=== PATIENT | female | born 1975 | race Hispanic/Latino ===

== ENCOUNTER → 2017-06-02 | Outpatient (CLI) | payer BC ==
--- NOTE | 2017-06-02 12:38 | Diagnostic Imaging Report ---
PROCEDURE:HIPS BILAT TWO VWS(+/- PELVIS) INDICATION:Osteoarthrosis. COMPARISON:None. FINDINGS: No acute displaced fractures or dislocations. Mild degenerative changes of the hips with subchondral sclerosis and osteophytosis. Soft tissues are unremarkable. CONCLUSION: No acute radiographic abnormality. Dictated by: Nolan Boudreaux M.D. on 06/02/2017 at 12:38 Electronically approved by: Nolan Boudreaux M.D. on 06/02/2017 at 12:38
--- NOTE | 2017-06-02 13:34 | Diagnostic Imaging Report ---
EXAM: DXA BONE DENSITY INDICATIONS: OSTEOPORSIS COMPARISON: None. FINDINGS: Proximal left femur bone mineral density (BMD) (g/cm2):1.02 Femur T-score (standard deviation relative to young adult mean BMD): 0.4 Femur Z-score (standard deviation relative to age-matched control group):0.5 Lumbar bone mineral density (BMD) (g/cm2):1.17 Lumbar T-score (standard deviation relative to young adult mean BMD) 1.2 Lumbar Z-score (standard deviation relative to age-matched control group):1.4 Change since prior exam (%): Femur:Not applicable. Spine:Not applicable. Change since oldest prior exam (%): Femur:Not applicable. Spine:Not applicable. CONCLUSION: Bone mineral density is classified as normal. Fracture risk is not increased. World Health Organization Classification: *The Z-score is provided for informational purposes. The T-score is preferable for clinical decisions. When comparing exams, a change of >4% is considered statistically significant. SUGGESTED RECOMMENDATIONS: Normal \T\ Osteopenia:Consideration should be given to use of calcium supplementation, daily multiple vitamins and adequate exercise, as preventive measures against osteoporosis, if clinically indicated. Osteoporosis \T\ Severe Osteoporosis:In addition to the above, consideration should be given to medical therapy against osteoporosis, if clinically indicated. Dictated by: Nolan Boudreaux M.D. on 06/02/2017 at 13:34 Electronically approved by: Nolan Boudreaux M.D. on 06/02/2017 at 13:34
--- NOTE | 2017-06-10 16:32 | Diagnostic Imaging Report ---
#[id number] - MGSCRBIL #BILATERAL FIRST EVER DIGITAL SCREENING MAMMOGRAM WITH CAD: 06/02/2017 CLINICAL: Routine screening. Baseline exam. No prior exams were available for comparison. Current study contains 4 films. The tissue of both breasts is heterogeneously dense. This may lower the sensitivity of mammography. Current study was also evaluated with a Computer Aided Detection (CAD) system. There is a benign calcification in the left breast. No significant masses, calcifications, or other findings are seen in either breast. IMPRESSION: BENIGN There is no mammographic evidence of malignancy. A 1 year screening mammogram is recommended. The patient will be notified by letter of the results. Michael capellan/marva:06/10/2017 10:25:26 Security And Compliance Project Manager: Martha TAVARES)(M), [facility] letter sent: Normal Exam Mammogram BI-RADS: 2 Benign
== END ==
LOC: MAMMO 11:39
PROVIDERS: ATTEND Internal Medicine
DX: Z12.31 Encounter for screening mammogram for malignant neoplasm of breast (principal); Z13.820 Encounter for screening for osteoporosis; M16.10 Unilateral primary osteoarthritis, unspecified hip
CPT/HCPCS: 73521; 77067; 77080

== ENCOUNTER → 2017-06-16 | Outpatient (CLI) | payer BC ==
--- NOTE | 2017-06-16 14:22 | Diagnostic Imaging Report ---
PROCEDURE:TRANSVAGINAL ULTRASOUND COMPARISON:None. INDICATIONS:excessive and frequent menstruation TECHNIQUE: Grayscale transverse and sagittal transabdominal and transvaginal images were obtained of the pelvis. Transvaginal imaging was medically necessary to better evaluate the endometrium. FINDINGS: 42-year-old female patient is G4, with stated LMP 05/30/2017 Exam limited by overlying bowel gas. UTERUS: 8.5 x 4.1 x 5.6 cm. Normal echogenicity. Normal vascularity. No focal lesions. ENDOMETRIUM: 4.3 mm. Homogeneous echotexture without focal thickening. There is a 2.3 x 1.9 x 2.1 cm relatively well-circumscribed solid rounded lesion in the endometrial cavity at the fundus, with mildly heterogeneous echogenicity and vascularity on color Doppler. A small amount of fluid surrounds this lesion in the endometrial cavity. This RIGHT OVARY: 5.5 x 3.2 x 2.9 cm. Normal echogenicity. 3.5 x 3.1 x 2.9 cm hypoechoic rounded, well-circumscribed lesion with lacy reticular echoes, consistent with a hemorrhagic cyst. No increased vascularity. Adjacent 1.8 x 1.7 x 1.7 cm cystic anechoic lesion, likely representing a dominant follicle. LEFT OVARY: Not visualized due to overlying bowel gas. There is no free fluid within the pelvis. No adnexal masses. CONCLUSION: 1. 2.3 cm solid rounded lesion in the endometrial cavity at the fundus. Primary diagnostic consideration is an endometrial polyp. Endometrial neoplasm or focal hyperplasia are less likely. Recommend REGIONAL ENVIRONMENTAL MANAGER consultation for tissue diagnosis. 2. 3.5 cm right ovarian hemorrhagic cyst. Satnam Haq M.D. Dictated by: Satnam Haq M.D. on 06/16/2017 at 14:23 Electronically approved by: Satnam Haq M.D. on 06/16/2017 at 14:23
--- NOTE | 2017-06-16 14:22 | Diagnostic Imaging Report ---
PROCEDURE:US PELVIS COMPLETE NON OB COMPARISON:None. INDICATIONS:excessive and frequent menstruation CONCLUSION: Please refer to transvaginal ultrasound performed at the same date and time for full dictated report. Satnam Haq M.D. Dictated by: Satnam Haq M.D. on 06/16/2017 at 14:23 Electronically approved by: Satnam Haq M.D. on 06/16/2017 at 14:23
== END ==
LOC: US 11:48
PROVIDERS: ATTEND Internal Medicine
DX: N92.0 Excessive and frequent menstruation with regular cycle (principal)
CPT/HCPCS: 76830; 76856

== ENCOUNTER 2019-08-10 15:10 | Observation (INO) | payer BC ==
[~2019-08-10] VITALS: Ht 162.6 cm; Wt 84.4 kg
--- OUTSIDE RECORDS SUMMARY | 2019-08-10 15:13 | XMS REPORT | Continuity of Care Document ---
Author Author [facility] Organization [facility] Address [address] [place] [address] Phone Unavailable Care Team Providers Care Pbx Supervisor Name Role Phone Pattie GONZALEZ Attphys Unavailable Problems This patient has no known problems. Allergies, Adverse Reactions, Alerts This patient has no known allergies or adverse reactions. Medications This patient has no known medications. Procedures This patient has no known procedures. Results Test Description Test Time Test Comments Results Result Comments Source US TRANSVAGINAL [facility] [address] [place] [address] Patient Name: EDWARD TILLMAN MR #: [id number] : 1975 Age/Sex: 42/F Req #: [id number] Adm Physician: Ordered by: MANUEL GONZALEZ MD Report #: [id number] Location: Room/Bed: Procedure: [id number] US/US TRANSVAGINAL Exam Date: 06/16/17 Exam Time: 1255 REPORT STATUS: Signed PROCEDURE: TRANSVAGINAL ULTRASOUND COMPARISON: None. INDICATIONS: excessive and frequent menstruation TECHNIQUE: Grayscale transverse and sagittal transabdominal and transvaginal images were obtained of the pelvis. Transvaginal imaging was medically necessary to better evaluate the endometrium. FINDINGS: 42-year-old female patient is G4, with stated LMP 05/30/2017 Exam limited by overlying bowel gas. UTERUS: 8.5 x 4.1 x 5.6 cm. Normal echogenicity. Normal vascularity. No focal lesions. ENDOMETRIUM: 4.3 mm. Homogeneous echotexture without focal thickening. There is a 2.3 x 1.9 x 2.1 cm relatively well-circumscribed solid rounded lesion in the endometrial cavity at the fundus, with mildly heterogeneous echogenicity and vascularity on color Doppler. A small amount of fluid surrounds this lesion in the endometrial cavity. This RIGHT OVARY: 5.5 x 3.2 x 2.9 cm. Normal echogenicity. 3.5 x 3.1 x 2.9 cm hypoechoic rounded, well-circumscribed lesion with lacy reticular echoes, consistent with a hemorrhagic cyst. No increased vascularity. Adjacent 1.8 x 1.7 x 1.7 cm cystic anechoic lesion, likely representing a dominant follicle. LEFT OVARY: Not visualized due to overlying bowel gas. There is no free fluid within the pelvis. No adnexal masses. CONCLUSION: 1. 2.3 cm solid rounded lesion in the endometrial cavity at the fundus. Pr imary diagnostic consideration is an endometrial polyp. Endometrial neoplasm or focal hyperplasia are less likely. Recommend STEAMER BLOCKER consultation for tissue diagnosis. 2. 3.5 cm right ovarian hemorrhagic cyst. Kayla Haq M.D. Dictated by: Kayla Haq M.D. on 06/16/2017 at 14:23 Electronically approved by: Kayla Haq M.D. on 06/16/2017 at 14:23 Dictated By: KAYLA HAQ MD 1423 Transcribed By: CYN on 06/16/17 1423 COPY TO: MANUEL GONZALEZ MD US PELVIS COMPLETE NON OB [place] [address] Patient Name: EDWARD TILLMAN MR #: [id number] : 1975 Age/Sex: 42/F Req #: [id number] Adm Physician: Ordered by: MANUEL GONZALEZ MD Report #: [id number] Location: US Room/Bed: Procedure: [id number] US/US PELVIS COMPLETE NON OB Exam Date: 06/16/17 Exam Time: 1255 REPORT STATUS: Signed PROCEDURE: US PELVIS COMPLETE NON OB COMPARISON: None. INDICATIONS: excessive and frequent menstruation CONCLUSION: Please refer to transvaginal ultrasound performed at the same date and time for full dictated report. Kayla Haq M.D. Dictated by: Kayla Haq M.D. on 06/16/2017 at 14:23 Electronically approved by: Kayla Haq M.D. on 06/16/2017 at 14:23 Dictated By: KAYLA HAQ MD 1423 Transcribed By: CYN on 06/16/17 1423 COPY TO: MANUEL GONZALEZ MD HIPS BIL TWO VWS(+/- PELVIS) [place] [address] Patient Name: EDWARD TILLMAN MR #: [id number] : 1975 Age/Sex: 42/F Req #: [id number] Adm Physician: Ordered by: MANUEL GONZALEZ MD Report #: [id number] [facility] Room[facility]Bed: Procedure: DX/HIPS BILAT TWO VWS(+/- PELVIS) Exam Date: Exam Time: REPORT STATUS: Signed PROCEDURE: HIPS BILAT TWO VWS(+/- PELVIS) INDICATION: Osteoarthrosis. COMPARISON: None. FINDINGS: No acute displaced fractures or dislocations. Mild degenerative changes of the hips with subchondral sclerosis and osteophytosis. Soft tissues are unremarkable. CONCLUSION: No acute radiographic abnormality. Dictated by: Nolan Willis M.D. on 06/02/2017 at 12:38 Electronically approved by: Nolan Willis M.D. on 06/02/2017 at 12:38 Dictated By: NOLAN WILLIS MD 1238 Transcribed By: CYN on 06/02/17 1238 COPY TO: MANUEL GONZALEZ MD BONE DXA DUAL ENERGY [place] [address] Patient Name: EDWARD TILLMAN MR #: [id number] : 1975 Age/Sex: 42/F Req #: [id number] Adm Physician: Ordered by: MANUEL GONZALEZ MD Report #: [id number] [facility] Room/Bed: Procedure: DX/BONE DXA DUAL ENERGY Exam Date: Exam Time: REPORT STATUS: Signed EXAM: DXA BONE DENSITY INDICATIONS: OSTEOPORSIS COMPARISON: None. FINDINGS: Proximal left femur bone mineral density (BMD) (g/cm2): 1.02 Femur T-score (standard deviation relative to young adult mean BMD): 0.4 Femur Z-score (standard deviation relative to age-matched control group): 0.5 Lumbar bone mineral density (BMD) (g/cm2): 1.17 Lumbar T-score (standard deviation relative to young adult mean BMD) 1.2 Lumbar Z-score (standard deviation relative to age-matched control group): 1.4 Change since prior exam (%): Femur: Not applicable. Spine: Not applicable. Change since oldest prior exam (%): Femur: Not applicable. Spine: Not applicable. CONCLUSION: Bone mineral density is classified as normal. Fracture risk is not increased. World Health Org anization Classification: *The Z-score is provided for informational purposes. The T-score is preferable for clinical decisions. When comparing exams, a change of >4% is considered statistically significant. SUGGESTED RECOMMENDATIONS: Normal T Osteopenia: Consideration should be given to use of calcium supplementation, daily multiple vitamins and adequate exercise, as preventive measures against osteoporosis, if clinically indicated. Osteoporosis T Severe Osteoporosis: In addition to the above, consideration should be given to medical therapy against osteoporosis, if clinically indicated. Dictated by: Nolan Willis M.D. on 06/02/2017 at 13:34 Electronically approved by: Nolan Willis M.D. on 06/02/2017 at 13:34 Dictated By: NOLAN WILLIS MD 1334 Transcribed By: CYN on 06/02/17 1334 COPY TO: MANUEL GONZALEZ MD MAMMOGRAPHY DIGITAL [place] [address] Patient Name: EDWARD TILLMAN MR #: [id number] : 1975 Age/Sex: 42/F Req #: [id number] [facility] Physician: Ordered by: MANUEL GONZALEZ MD Report #: [id number] [facility] Room[facility]Bed: Procedure: [id number] MG/MAMMOGRAPHY DIGITAL SCR BILAT Exam Date: 06/02/17 Exam Time: 1209 REPORT STATUS: Signed #[id number] - MGSCRBIL #BILATERAL FIRST EVER DIGITAL SCREENING MAMMOGRAM WITH CAD: 06/02/2017 CLINICAL: Routine screening. Baseline exam. No prior exams were available for comparison. Current study contains 4 films. The tissue of both breasts is heterogeneously dense. This may lower the sensitivity of mammography. Current study was also evaluated with a Computer Aided Detection (CAD) system. There is a benign calcification in the left breast. No significant masses, calcifications, or other findings are seen in either breast. IMPRESSION: BENIGN There is no mammographic evidence of malignancy. A 1 year screening mammogram is recommended. The patient will be notified by letter of the results. Darnell capellan/maricel:06/10/2017 10:25:26 Supervisor Joiners: Martha TAVARES)(Pattie), [facility] letter sent: Normal Exam Mammogram BI-RADS: 2 Benign Dictated By: DARNELL FRENCH DO 1025 Transcribed By: MARICEL on 06/10/17 1025 COPY TO: MANUEL GONZALEZ MD
--- NOTE | 2019-08-10 15:14 | Emergency Department Note ---
History of Present Illnes History of Present Illness History of Present Illness This is a 44 year old female sent by PCP for evaluation of HgB of 5.6. Self-reported h/o of dysfunctional uterine bleeding. Historian: Patient Arrival Mode: Car Onset (how long ago): day(s) Radiation: Reports non-radiation Severity: moderate Onset quality: gradual Duration (how long): day(s) Timing of current episode: constant Progression: worsening Chronicity: new Context: Denies recent illness, Denies recent surgery, Denies recent immobilization, Denies recent travel, Denies trauma/injury, Denies new medications, Denies hx of DVT/PE, Denies non-compliance w/ medications, Denies other Relieving factors: none Exacerbating factors: none Associated symptoms: Reports weakness Treatments prior to arrival: none Past Medical/Family History Physician Review I have reviewed the patient's past medical and family history. Any updates have been documented here. Past Medical History Recent Fever: No Clinical Suspicion of Infectio: No New/Unexplained Change in Ment: No Past Medical History: Anemia Past Surgical History: None Social History Smoking Cessation: Never Smoker Alcohol Use: None Any Illegal Drug Use: No Review of Systems Review of Systems Constitutional: Reports weakness EENTM: Reports no symptoms Cardiovascular: Reports no symptoms Respiratory: Reports no symptoms Gastrointestinal: Reports no symptoms Genitourinary: Reports other (vaginal bleeding) Musculoskeletal: Reports no symptoms Integumentary: Reports no symptoms Neurological: Reports no symptoms Psychological: Reports no symptoms Endocrine: Reports no symptoms Hematological/Lymphatic: Reports no symptoms Physical Exam Related Data Allergies: Coded Allergies: No Known Allergies (Unverified , 08/10/19) Triage Vital Signs Vital Signs Date Time Temp Pulse Resp B/P (MAP) Pulse Ox O2 Delivery O2 Flow Rate FiO2 08/10/19 15:50 97.8 87 16 149/84 100 08/10/19 23:25 Room Air Vital signs reviewed: Yes Physical Exam CONSTITUTIONAL Constitutional: Reports well-developed, Reports well-nourished HENT HENT: Reports normocephalic, Reports atraumatic, Reports oropharynx clear/moist, Reports nose normal HENT L/R: Reports left ext ear normal, Reports right ext ear normal EYES Eyes: Reports PERRL, Reports conjunctivae normal NECK Neck: Reports ROM normal PULMONARY Pulmonary: Reports effort normal, Reports breath sounds normal CARDIOVASCULAR Cardiovascular: Reports regular rhythm, Reports heart sounds normal, Reports capillary refill normal, Reports normal rate GASTROINTESTINAL Abdominal: Reports soft, Reports nontender, Reports bowel sounds normal GENITOURINARY Genitourinary: Reports exam deferred SKIN Skin: Reports warm, Reports dry MUSCULOSKELETAL Musculoskeletal: Reports ROM normal NEUROLOGICAL Neurological: Reports alert, Reports oriented x 3, Reports no gross motor or sensory deficits PSYCHOLOGICAL Psychological: Reports mood/affect normal, Reports judgement normal Results Laboratory Lab results reviewed: Yes Laboratory comments CBC : HgB 5.2 Assessment & Plan Medical Decision Making MDM 44 year old female sent by PCP for evaluation of HgB of 5.6 . self-reported h/o of dysfunctional uterine bleeding. Plan to admit for observation and response to blood transfusion Assessment & Plan Final Impression: (1) Anemia (2) Weakness Depart Disposition: ADMITTED Home Meds Reported Medications Progesterone, Micronized (Progesterone Micronized) 25 Gm Powder, 200 MG DAILY 08/10/19 Folic Acid/Cyanocob/Pyridoxine (NEPHRO-BRAN TABLET) 1 Ea Tab, 1 EACH PO DAILY, #30 TAB 08/10/19 Mecobalamin (B12 Active) 1,000 Mcg Tab.chew, 5000 UD 08/10/19 MANOLO MURILLO 12, 2020 15:14
--- NOTE | 2019-08-10 16:25 | NUR ---
{null, PATIENT DENIES THE USE OF HOME MEDICATIONS }
[2019-08-10 16:27] LABS: INR 0.9; PARTIAL THROMBOPLASTIN TIME 29.3 seconds (23.8-35.5); PROTHROMBIN TIME 12.7 seconds (11.9-14.5)
[2019-08-10 16:29] LABS: BASOPHILS % 0.2 % (0.0-1.0); EOSINOPHILS # (AUTO) 0.2 (0.0-0.4); LYMPHOCYTES # (AUTO) 1.7 (1.0-3.2); LYMPHOCYTES % 28.1 % (18.0-39.1); MEAN CORPUSCULAR HEMOGLOBIN 20.9 pg (28-32); MEAN CORPUSCULAR HGB CONC 28.7 g/dL (31-35); MEAN CORPUSCULAR VOLUME 72.7 fL (81-99); MONOCYTES # (AUTO) 0.4 (0.2-0.8); MONOCYTES % 6.3 % (4.4-11.3); NEUTROPHILS # (AUTO) 3.7 (2.1-6.9); NEUTROPHILS % 61.1 % (38.7-80.0); PLATELET COUNT 519 x10e3/uL (140-360); RED BLOOD COUNT 2.49 x10e6/uL (3.6-5.1); RED CELL DISTRIBUTION WIDTH 18.7 % (11.7-14.4)
[2019-08-10 16:31] LABS: HEMATOCRIT 18.1 % (34.2-44.1); HEMOGLOBIN 5.2 g/dL (12.0-16.0)
[2019-08-10 16:34] LABS: ANION GAP 12.6 mmol/L (8-16); BLOOD UREA NITROGEN 13 mg/dL (7-26); BUN/CREATININE RATIO 19 (6-25); CALCIUM 9.1 mg/dL (8.4-10.2); CARBON DIOXIDE 22 mmol/L (22-29); CHLORIDE 107 mmol/L (98-107); CREATININE, SERUM 0.69 mg/dL (0.57-1.11); EST GLOMERULAR FILTRATION RATE > 60 ML/MIN (60-); GLUCOSE 90 mg/dL (74-118); POTASSIUM 3.6 mmol/L (3.5-5.1); SODIUM 138 mmol/L (136-145)
--- NOTE | 2019-08-10 16:40 | NUR ---
{null, blood consent reviewed and signed with patient. }
[2019-08-10] MEDS ORDERED: SODIUM CHLORIDE 0.9% 250ML 250 ML IV ONE (17:15)
--- NOTE | 2019-08-10 18:59 | NUR ---
{null, report given to Larry WARREN }
[2019-08-10] MEDS ORDERED: SODIUM CHLORIDE 0.9% 1000ML 1,000 ML IV SCH (19:00)
--- OUTSIDE RECORDS SUMMARY | 2019-08-10 19:32 | XMS REPORT | Continuity of Care Document ---
Author Author [facility] t Organization [facility] Address [address] [place]. [address] [place] [address] Phone Unavailable Care Team Providers Care Machine Attendant Name Role Phone Pattie GONZALEZ Attphys Unavailable Problems This patient has no known problems. Allergies, Adverse Reactions, Alerts This patient has no known allergies or adverse reactions. Medications This patient has no known medications. Procedures This patient has no known procedures. Results Test Description Test Time Test Comments Results Result Comments Source US TRANSVAGINAL [place] [address] Patient Name: EDWARD TILLMAN MR #: [id number] : 1975 Age/Sex: 42/F Req #: [id number] Adm Physician: Ordered by: MANUEL GONZALEZ MD Report #: [id number] Location: Room/Bed: Procedure: [id number] US/US TRANSVAGINAL Exam Date: 06/16/17 Exam Time: [...] or focal hyperplasia are less likely. Recommend CINDER PIT CRANE OPERATOR consultation for tissue diagnosis. 2. 3.5 cm right ovarian hemorrhagic cyst. Kayla Haq M.D. Dictated by: Kayla Haq M.D. on 06/16/2017 at 14:23 Electronically approved by: Kayla Haq M.D. on 06/16/2017 at 14:23 Dictated By: KAYLA HAQ MD 1423 Transcribed By: CYN on 06/16/17 1423 COPY TO: MANUEL GONZALEZ MD US PELVIS COMPLETE NON OB [place] [address] Patient Name: EDWARD TILLMAN MR #: [id number] : 1975 Age/Sex: 42/F Req #: [id number] Adm Physician: Ordered by: MANUEL GONZALEZ MD Report #: [id number] Location: US Room/Bed: Procedure: [id number] US/US PELVIS COMPLETE NON OB Exam Date: [...] 1423 COPY TO: MANUEL GONZALEZ MD HIPS [facility] TWO VWS(+/- PELVIS) [place] [address] Patient Name: EDWARD TILLMAN MR #: [id number] : 1975 Age/Sex: 42/F Req #: [id number] Adm Physician: Ordered by: MANUEL GONZALEZ MD Report #: [id number] Location: [facility] Room/Bed: Procedure: DX/HIPS BILAT TWO VWS(+/- [...] MANUEL GONZALEZ MD BONE DXA DUAL ENERGY [place] [address] Patient Name: EDWARD TILLMAN MR #: [id number] : 1975 Age/Sex: 42/F Req #: [id number] Adm Physician: Ordered by: MANUEL GONZALEZ MD Report #: [id number] Location: [facility] Room/Bed: Procedure: DX/BONE DXA DUAL ENERGY [...] COPY TO: MANUEL GONZALEZ MD MAMMOGRAPHY DIGITAL [place] [address] Patient Name: EDWARD TILLMAN MR #: [id number] : 1975 Age/Sex: 42/F Req #: [id number] Adm Physician: Ordered by: MANUEL GONZALEZ MD Report #: [id number] Location: [facility] Room/Bed: Procedure: [id number] MG/MAMMOGRAPHY DIGITAL SCR BILAT Exam Date: 06/02/17 Exam Time: 1209 REPORT STATUS: Signed #[id number] - MGSCRBIL #BILATERAL FIRST EVER DIGITAL SCREENING [...] letter of the results. Darnell capellan/maricel:06/10/2017 10:25:26 Community Relations Advisor: Martha TAVARES)(Pattie), [facility] letter sent: Normal Exam Mammogram BI-RADS: 2 Benign Dictated By: DARNELL FRENCH DO 1025 Transcribed By: MARICEL on 06/10/17 1025 COPY TO: MANUEL GONZALEZ MD
--- NOTE | 2019-08-10 19:55 | NUR ---
{null, First unit of PRBC hung with 2nd RN power saw mechanic prior to starting blood transfusion. VSS }
[2019-08-10 21:19] VITALS: BP 118/77
[2019-08-10 21:59] VITALS: BP 126/81
[2019-08-10] MEDS ORDERED: B12 ACTIVE1000 MCG (22:20)
[2019-08-10] MEDS ORDERED: NEPHRO-VITE TABL1 EA PO (22:20)
[2019-08-10] MEDS ORDERED: PROGESTERONE MI25 GM (22:20)
[2019-08-10] MEDS ORDERED: AMITRIPTYLINE HCL 10 MG TAB PO SCH (22:45)
[2019-08-10] MEDS ORDERED: DOCUSATE SODIUM 100 MG CAP PO PRN (22:45)
[2019-08-10] MEDS ORDERED: MELATONIN 5 MG TABLET PO PRN (22:45)
[2019-08-10] MEDS ORDERED: ACETAMINOPHEN 325 MG TAB PO PRN (22:45)
[2019-08-10] MEDS ORDERED: ONDANSETRON HCL INJ 2MG/ML 2ML 2 MG/ML VIAL IV PRN (22:45)
[2019-08-10 23:25] VITALS: BP 130/81
[2019-08-11] VITALS (7 sets, daily range): BP systolic 105–172; BP diastolic 57–79
[2019-08-11] MEDS ORDERED: SODIUM CHLORIDE 0.9% 250ML 250 ML ONE (02:49)
--- NOTE | 2019-08-11 04:12 | History and Physical ---
CHIEF COMPLAINT: Fatigue, anemia. HISTORY OF PRESENT ILLNESS: This is a 44-year-old female, who has a known history of menorrhagia, was sent in by her PCP due to underlying low hemoglobin and also with complaints of underlying fatigue and dyspnea on exertion. The patient on presentation was found to have a hemoglobin of 5.2. The patient reports that she has had significant menorrhagia for significant number of years. She reports that her periods ended on Tuesday of this last week. She reports her periods lasted about 3 weeks, but it was pretty heavy, is what she reports. She does not take any iron tablets at home. She denies any chest pain, palpitation, nausea, or vomiting. Denies any fever, cough, congestion, or any recent travel. The patient has never received blood transfusions in the past. She denies any rectal bleeding, any hemoptysis, hematemesis, or any hematuria. The patient is seen and evaluated at bedside on the medical floor. She is currently doing well with no other issues at this time. REVIEW OF SYSTEMS: Pertinent positives: Shortness of breath on exertion, fatigue, generalized weakness. The rest of 14-point review of systems have been reviewed with the patient and are negative. ALLERGIES: NO KNOWN DRUG ALLERGIES. HOME MEDICATIONS: 1. Nephro-Shoaib vitamins. 2. Vitamin B12 chewable. 3. Progesterone. PAST MEDICAL HISTORY: She has a significant menorrhagia, iron deficiency anemia. PAST SURGICAL HISTORY: She reports just only a tubal ligation. FAMILY HISTORY: Hypertension and diabetes. SOCIAL HISTORY: No drugs. No alcohol. Does not smoke. She does have children. PHYSICAL EXAMINATION: VITAL SIGNS: Temperature is 97.8, pulse 82, respiratory rate 16, blood pressure 119/64, pulse ox 100%. GENERAL: Not in acute distress. Alert and oriented x3. Cooperative on examination. HEENT: Head; normocephalic, atraumatic. Eyes; pupils are equal, round, and reactive to light bilaterally. Extraocular movements intact bilaterally. Throat; no evidence of erythema or exudates in the posterior pharynx. Has poor dentition. NECK: Supple. Good range of motion. PULMONARY: Clear to auscultation bilaterally. No wheezing, no rales, no rhonchi, no crackles appreciated. CARDIOVASCULAR: Positive S1 and S2. No murmurs, rubs, or gallops appreciated. ABDOMEN: Soft, nondistended, and nontender to palpation. Bowel sounds present. MUSCULOSKELETAL: Strength is 5/5 throughout. No evidence of any muscle deficits on examination. No weakness appreciated. NEUROLOGIC: Cranial nerve II through XII grossly intact. No evidence of any neurological deficits on exam. SKIN: Intact. Warm to touch. Good cap refill. PSYCHIATRIC: Normal affect and mood. EXTREMITIES: No edema. Good range of motion throughout. LABORATORY DATA: Show white count 6, hemoglobin 5.2, hematocrit is 18, platelets of 519. Coagulation; PT is 12, INR 0.9, PTT 29. Chemistry; sodium 138, potassium 3.6, chloride 107, bicarb 22, anion gap of 12, BUN 13, creatinine 0.69, glucose 90, calcium 9.1. MICROBIOLOGY: None. IMAGING STUDIES: None. IMPRESSION: 1. Menorrhagia. 2. Iron-deficiency anemia. 3. Generalized weakness with fatigue secondary to underlying anemia. PLAN: At this time, type and screen, and transfuse 3 units packed RBCs. She has already received one unit, she has two more units left. I did order a vitamin B12, folic acid, and iron studies. She already sees an [facility] TECHNICIAN in [place] and is scheduled to see that doctor sometime this month. She was told that she needs a uterine fibroid ablation at some point. She is currently not having any bleeding at this time. Her period has ceased. There is no evidence of any rectal bleeding or any other source of bleeding. At this time, we will get the blood transfusion and monitor very closely. I did consult with Hematology. She will likely have iron infusion as an outpatient. Resume same home medications. We did consult with [facility], but since she is not having any active vaginal bleeding and her period has ceased, she is to follow up with her original primary [facility] TECHNIC[facility] in [place]. Hold all anticoagulation. Encourage ambulation, otherwise. MD MELANIE Gomez/ROWAN /[id number]
[2019-08-11 08:16] LABS: EOSINOPHILS # (AUTO) 0.3 (0.0-0.4); EOSINOPHILS % 6.3 % (0.0-6.0); HEMATOCRIT 30.7 % (34.2-44.1); HEMOGLOBIN 9.7 g/dL (12.0-16.0); LYMPHOCYTES # (AUTO) 1.8 (1.0-3.2); LYMPHOCYTES % 35.6 % (18.0-39.1); MEAN CORPUSCULAR HEMOGLOBIN 24.4 pg (28-32); MEAN CORPUSCULAR HGB CONC 31.6 g/dL (31-35); MEAN CORPUSCULAR VOLUME 77.3 fL (81-99); MONOCYTES # (AUTO) 0.5 (0.2-0.8); MONOCYTES % 9.8 % (4.4-11.3); NEUTROPHILS # (AUTO) 2.5 (2.1-6.9); NEUTROPHILS % 48.1 % (38.7-80.0); PLATELET COUNT 410 x10e3/uL (140-360); RED BLOOD COUNT 3.97 x10e6/uL (3.6-5.1); RED CELL DISTRIBUTION WIDTH 18.1 % (11.7-14.4)
[2019-08-11 08:41] LABS: ALANINE AMINOTRANSFERASE 14 IU/L (0-55); ALBUMIN 3.4 g/dL (3.5-5.0); ALKALINE PHOSPHATASE 85 IU/L (40-150); BLOOD UREA NITROGEN 14 mg/dL (7-26); BUN/CREATININE RATIO 20 (6-25); CALCIUM 8.8 mg/dL (8.4-10.2); CARBON DIOXIDE 23 mmol/L (22-29); CHLORIDE 109 mmol/L (98-107); CREATININE, SERUM 0.71 mg/dL (0.57-1.11); EST GLOMERULAR FILTRATION RATE > 60 ML/MIN (60-); GLUCOSE 97 mg/dL (74-118); SODIUM 138 mmol/L (136-145)
[2019-08-11 09:05] LABS: FERRITIN 3.59 ng/mL (4.63-204.00)
--- NOTE | 2019-08-11 21:46 | Consultation ---
DATE OF CONSULTATION: 08/10/2019 REQUESTING PHYSICIAN: Killian Larsen MD. CONSULTING PHYSICIAN: Rachid Cadena, Hematology-Oncology service. REASON FOR CONSULTATION: Evaluation and management of patient with severe symptomatic anemia. HISTORY OF PRESENTING ILLNESS: Ms. House is a very pleasant 44-year-old female with longstanding history of menorrhagia and anemia, who presented with worsening fatigue, tiredness, and not feeling well. She was also having significant shortness of breath, subsequently sent to the hospital by her primary care provider for evaluation. Initial blood work revealed hemoglobin in 5 range. Subsequently, she is hospitalized. She underwent 2 unit of PRBC transfusion and Hematology-Oncology has been consulted to assist with the management. Presently, the patient is lying comfortably, not in acute distress, breathing normally. She stated that she has been having menorrhagia for some time. She has been treated with oral iron supplement without much improvement. She also has been given progesterone for regulation of maturation with some improvement. She denies any hematologic disorder. PAST MEDICAL HISTORY: 1. Menorrhagia. 2. Iron deficiency anemia. PAST SURGICAL HISTORY: Tubal ligation. FAMILY HISTORY: Positive for diabetes and hypertension. SOCIAL HISTORY: Denied alcohol use, illicit drug use or history of smoking. She lives in [place], [place]. ALLERGIES: NO KNOWN DRUG ALLERGIES. CURRENT MEDICATIONS: Reviewed as per electronic medical record. REVIEW OF SYSTEMS: A 14-point review of systems negative except as mentioned in history of presenting illness. PHYSICAL EXAMINATION: VITAL SIGNS: Reviewed as per electronic medical record. HEENT: PERRLA. Extraocular movements intact. Head is atraumatic and normocephalic. NECK: Supple. CV: S1 and S2 audible. RESPIRATORY: Decreased bilateral air entry. ABDOMEN: Soft. Positive bowel sounds. EXTREMITIES: Negative edema. NEURO: The patient is alert and awake. LABORATORY DATA: White blood cell count of 5.1, hemoglobin 9.7, hematocrit 30.7, platelets 410. BUN 10, creatinine 0.7, iron 104, ferritin 3.5. ASSESSMENT AND PLAN: Ms. House is a very pleasant 44-year-old young female with no significant past medical history other than menorrhagia and longstanding history of anemia, presented to the Emergency Department due to worsening fatigue, tiredness, and shortness of breath. She was noted to have a hemoglobin in 5 range, subsequently hospitalized, underwent 2 unit of PRBC transfusion. Hematology-Oncology has been consulted to assist with the management. I reviewed the record at full length with the patient about her current disease and importance of further workup and treatment. Overall, it does appear that iron-deficiency anemia is secondary to heavy period she has been going on for some time. She is severely iron deficient. She has been treated with oral iron supplementation without much improvement. At this point, recommendation would be to start the patient on IV iron infusion, which she will require on an outpatient setting on weekly basis until resolution of anemia as well as repletion of iron stores. Risks, benefits, and complications have been discussed at length with the patient. From Heme-Onc standpoint, the patient is okay to be discharged home with the instruction to follow up with primary care provider as well as at my office for continuation of treatment. Thank you for the consult. I will continue to be available. Please call with questions. MD PAUL Arvizu/MODL /[id number]
--- NOTE | 2019-08-11 23:01 | Discharge Summary ---
FINAL DISCHARGE DIAGNOSES: 1. Anemia, secondary to menorrhagia. 2. Iron deficiency anemia. CONSULTANTS: Hematology. PHYSICAL EXAMINATION: VITAL SIGNS: Temperature is 97.9, pulse is 59, respiratory rate is 18, and blood pressure 129/79, and pulse ox 100% on room air. LABORATORY FINDINGS: Show white count is 5.1, hemoglobin on admission was 5.2, after 3 units packed RBCs now 9.7; hematocrit on admission 18, now 31; platelets of 410. Coagulation PT 12, INR 0.9, PTT 29. Chemistry; sodium 138, potassium 4.0, chloride 109, bicarb 23, anion gap of 10, BUN 14, creatinine 0.71. Iron saturation was 18%. Vitamin B12 786, albumin is 3.4, RBC of folate was pending. SEROLOGY: Coronavirus is pending. IMAGING STUDIES: None. HOSPITAL COURSE: A 44-year-old female, comes into the ED with generalized weakness, fatigue, underlying dizziness, found to have a hemoglobin level of 5.2. The patient has had a history of iron-deficiency anemia in the past, but has never received any blood transfusion. While here, the patient received 3 units packed RBCs with a hemoglobin level on discharge of 9.7. The patient's all symptoms resolved prior to being discharged home. She denies any shortness of breath, cough, congestion, lightheadedness, dizziness, or any kind of generalized weakness, or any fatigue. The patient was found to have iron deficiency anemia, which Hematology was consulted, recommends outpatient iron infusion. The patient is otherwise, doing well with no other complaints. She does follow up with [facility] TECHNICIAN in [place] and which I advised to follow up very closely with him. She told me that she has a history of urine fibroids and they need to have an ablation performed at some later date. Currently, she has no vaginal bleeding and appeared has ceased a few days ago. At this time, she is stable with no issues. No further workup was needed. On the day of discharge, vital signs were stable, labs reviewed and stable. The patient is seen and evaluated, and examined thoroughly on the day of discharge. No other complaints. The patient verbalized understanding and agrees to plan of care to follow up as an outpatient with primary care physician in 1 week, hematology in 2 weeks and her [facility] TECHNICIAN in 2 weeks' time. MEDICATIONS: See med reconciliation form. DISPOSITION: Home. CONDITION: Stable. DIET: Heart healthy. In the event of any worsening symptoms, the patient was advised to come back to the ED for further evaluation. Discharge summary took greater than 35 minutes. MD MELANIE Gomez/ROWAN /[id number]
== END 2019-08-11 17:05 | disposition home or self-care (01) ==
LOC: ER 15:10 → ERHOLD 19:00 → MED/SURG 21:34
PROVIDERS: ADMIT Internal Medicine; ATTEND Internal Medicine
DX: D50.0 Iron deficiency anemia secondary to blood loss (chronic) (principal); D50.9 Iron deficiency anemia, unspecified; N92.0 Excessive and frequent menstruation with regular cycle
CPT/HCPCS: 36415 ×2; 36430; 80048; 80053; 82607; 82728; 82747; 83540; 84466; 85025 ×2; 85610; 85730; 86850; 86900; 86920; 86922; 87635; 99284; G0378 ×2; J7030; J7050 ×2; P9016 ×2